=== PATIENT | male | born 1945 ===

== ENCOUNTER → 2018-05-22 19:45 | Outpatient (REF) | payer MEDICARE, SELFPAY ==
[2018-05-22 21:02] LABS: Rheumatoid Factor < 8.6 IU/mL (<12.0)
[2018-05-22 21:24] LABS: Erythrocyte Sedimentation Rate 36 MM/HR (0-15)
[2018-05-25 19:29] LABS: ANA Screen, IFA Negative (Negative)
[2018-05-26 16:22] LABS: DNA (DS) Antibody < 1 IU/mL (< 5)
== END ==
LOC: LAB 19:45
PROVIDERS: Visit Provider Family Medicine
DX: G89.29 Other chronic pain (principal); M54.2 Cervicalgia; M46.40 Discitis, unspecified, site unspecified
CPT/HCPCS: 36415; 85651; 86038; 86225; 86226; 86430

== ENCOUNTER → 2018-07-02 20:10 | Outpatient (REF) | payer MEDICARE, SELFPAY ==
[2018-07-02 20:26] LABS: Add Manual Diff / Slide Review NO; Basophils Absolute Auto 100 /uL (0-100); Basophils Percent Auto 0.7 % (0-2); Eosinophils Absolute Auto 200 /uL (0-450); Eosinophils Percent Auto 2.1 % (2-4); Hematocrit 33.8 % (41-53); Hemoglobin 11.6 g/dL (13.5-17.5); Lymphocytes Absolute Auto 900 /uL (1100-4500); Lymphocytes Percent Auto 12.2 % (25-40); Mean Corpuscular HGB Conc 34.2 % (30-36); Mean Corpuscular Hemoglobin 30.8 PG (26-34); Monocytes Absolute Auto 900 /uL (0-900); Monocytes Percent Auto 10.9 % (3-14); Neutrophils Absolute Auto 5800 /uL (1500-7000); Neutrophils Percent Auto 74.1 % (50-75); Platelet Count 220 X10^3/uL (150-400); Red Blood Cell Count 3.75 X10^6/uL (4.5-5.9); Red Cell Distribution Width 13.3 % (11.6-14.8); White Blood Cell Count 7.8 X10^3/uL (4.5-11.0)
[2018-07-02 21:09] LABS: Thyroid Stimulating Hormone 1.23 uIU/mL (0.47-4.68)
[2018-07-03 00:14] LABS: Folate 8.2 ng/mL (2.76-20.0); Vitamin B12 961 pg/mL (239-931)
== END ==
LOC: LAB 20:10
PROVIDERS: Visit Provider Family Medicine
DX: D64.9 Anemia, unspecified (principal); R53.83 Other fatigue
CPT/HCPCS: 36415; 82607; 82728; 82746; 84443; 85025